=== PATIENT | female | born 2000 | race Caucasian/White ===

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

== ENCOUNTER 2018-11-14 22:59 | Inpatient (IN) | payer OTHER ==
[2018-11-14 23:56] LABS: ABSOLUTE BASOPHILS # (AUTO) 0.1 10^3/uL (0.0-0.2); ABSOLUTE EOSINOPHILS # (AUTO) 0.3 10^3/uL (0.0-0.6); ABSOLUTE LYMPHOCYTES (AUTO) 2.1 10^3/uL (0.5-4.7); ABSOLUTE MONOCYTES (AUTO) 0.4 10^3/uL (0.1-1.4); ABSOLUTE NEUT (AUTO) 4.1 10^3/uL (1.7-8.2); BASOPHILS % (AUTO) 0.9 % (0-2); EOSINOPHILS % (AUTO) 4.2 % (0-6); HEMATOCRIT 38.6 % (36.0-47.0); HEMOGLOBIN 13.3 g/dL (12.0-15.5); LYMPHOCYTES % (AUTO) 30.3 % (13-45); MEAN CORPUSCULAR HEMOGLOBIN 30.2 pg (27.0-33.4); MEAN CORPUSCULAR HGB CONC 34.3 g/dL (32.0-36.0); MEAN CORPUSCULAR VOLUME 88 fl (80-97); MONOCYTES % (AUTO) 5.9 % (3-13); PLATELET COUNT 247 10^3/uL (150-450); RED BLOOD COUNT 4.39 10^6/uL (3.72-5.28); RED CELL DISTRIBUTION WIDTH 12.5 % (11.5-14.0); SEGMENTED NEUTROPHILS % (AUTO) 58.7 % (42-78); TOTAL CELLS COUNTED % (AUTO) 100 %
[2018-11-15] MEDS ORDERED: ACTIVATED CHARCOAL 25 GM BOTTLE PO ONE ×2 (00:09→03:26)
[2018-11-15] MEDS ORDERED: NORMAL SALINE 1000 ML 1,000 ML IV ONE (00:10)
--- NOTE | 2018-11-15 00:13 | ER Document Report ---
ED General - General Chief Complaint: Overdose Stated Complaint: POSSIBLE OVERDOSE Time Seen by Provider: 11/14/18 23:42 Primary Care Provider: RAYSA NORTH MD [COMMUNITY BASED STAFF] - Follow up as needed Notes: Patient is a 18-year-old female without chronic medical problems who presents after an overdose on aspirin. Patient states that this was impulsive that she took anywhere between 30 to 40 325 mg tablets of adult aspirin approximately 1 hour prior to arrival. States she did this due to stress, frustration and after an argument with her mother. States that she has been very anxious and worked up for the past several months. Nothing seems to improve or worsen that symptom. Has not seen her primary doctor or mental health care regarding this issue. Patient reports that she almost immediately regretted her decision, tried to self-induced vomiting but could not vomit up any of the pills that she had ingested. Currently denies any symptoms. Denies suicidal ideation, states she feels very foolish or having them when she did tonight. No history of previous suicide attempts. States she is not even certain that she was suicidal when she took her medications. TRAVEL OUTSIDE OF THE [place] IN LAST 30 DAYS: No - Related Data Allergies/Adverse Reactions: No Known Allergies Allergy (Verified 11/14/18 23:10) Past Medical History - General Information source: Patient - Social History Smoking Status: Never Smoker Frequency of alcohol use: Occasional Drug Abuse: Marijuana Lives with: Alone Family History: Reviewed & Not Pertinent Renal/ Medical History: Reports: Hx Peritoneal Dialysis - Immunizations Immunizations up to date: Yes Hx Diphtheria, Pertussis, Tetanus Vaccination: Yes Review of Systems - Review of Systems Notes: Constitutional: Negative for fever. HENT: Negative for sore throat. Eyes: Negative for visual changes. Cardiovascular: Negative for chest pain. Respiratory: Negative for shortness of breath. Gastrointestinal: Negative for abdominal pain, vomiting or diarrhea. Genitourinary: Negative for dysuria. Musculoskeletal: Negative for back pain. Skin: Negative for rash. Neurological: Negative for headaches, weakness or numbness. 10 point ROS negative except as marked above and in HPI. Physical Exam - Vital signs Vitals: Resp 18 11/14/18 23:08 Interpretation: Normal Notes: PHYSICAL EXAMINATION: GENERAL: Well-appearing, well-nourished and in no acute distress. HEAD: Atraumatic, normocephalic. EYES: Pupils equal round and reactive to light, extraocular movements intact, sclera anicteric, conjunctiva are normal. ENT: nares patent, oropharynx clear without exudates. Moist mucous membranes. NECK: Normal range of motion, supple without lymphadenopathy LUNGS: Breath sounds clear to auscultation bilaterally and equal. No wheezes rales or rhonchi. HEART: Regular rate and rhythm without murmurs ABDOMEN: Soft, nontender, normoactive bowel sounds. No guarding, no rebound. No masses appreciated. EXTREMITIES: Normal range of motion, no pitting or edema. No cyanosis. NEUROLOGICAL: No focal neurological deficits. Moves all extremities spontaneously and on command. PSYCH: Normal mood, normal affect. SKIN: Warm, Dry, normal turgor, no rashes or lesions noted. Course - Re-evaluation Re-evalutation: 11/15/18 00:12 Patient presents alleging that she may have taken over 10,000 mg of aspirin approximately 1 hour prior to arrival. Currently normal mental status, vitals within normal limits, no identifiable symptoms as a result of this ingestion. Poison control has been contacted, we will administer activated charcoal 50 g per the recommendation. Labs are pending. Serial aspirin levels have been ordered. Patient will be started on normal saline infusion. She will be reassessed at regular intervals. Highly concerning presentation of patient did take as much as she states she did. 11/15/18 01:56 Patient is beginning to have tinnitus, mental status remains normal. Vitals remain within acceptable limits. Repeat aspirin level will be drawn at 0215. Will continue to reassess. 11/15/18 03:27 Patient's aspirin level has unfortunately climbed to 42. A bicarbonate infusion will be initiated at 250 cc/h per toxicology protocol. Patient will also be given a repeat dose of activated charcoal at 25 g. Patient continues to be below threshold for transfer to a facility with hemodialysis or nephrology consu ltation at this time. We likewise should have the services available in the morning. Will discuss with the hospitalist for admission. On repeat assessment the patient she remains with tinnitus but no other clinical symptoms. - Vital Signs Vital signs: Temp Pulse Resp BP Pulse Ox 98.2 F 16 121/71 100 11/15/18 02:23 11/15/18 02:16 11/15/18 02:16 06/17/19 02:16 - Laboratory Result Diagrams: 11/14/18 23:15 11/15/18 02:20 Laboratory results interpreted by me: 11/14/18 11/15/18 11/15/18 23:15 01:07 02:20 Chloride 108 H Urine Ketones Ur Leukocyte Esterase TRACE H Salicylates 21.1 H* 42.4 H* Acetaminophen < 10 L 11/15/18 11/15/18 02:20 02:20 Chloride 110 H Urine Ketones TRACE H Ur Leukocyte Esterase TRACE H Salicylates Acetaminophen - EKG Interpretation by Me Additional EKG results interpreted by me: 11/15/18 02:28 Sinus rhythm, rate 62, no ST elevations or depressions. QTC is 431 Critical Care Note - Critical Care Note Total time excluding time spent on procedures (mins): 37 Comments: Critical care time spent obtaining history from patient or surrogate, discussions with consultants, development of treatment plan with patient or surrogate, evaluation of patient's response to treatment, examination of patient, ordering and performing treatments and interventions, ordering and review of laboratory studies, re-evaluation of patient's condition Discharge - Discharge Clinical Impression: Suicide attempt Aspirin overdose Qualifiers: Encounter type: initial encounter Injury intent: intentional self-harm Qualified Code(s): T39.012A - Poisoning by aspirin, intentional self-harm, initial encounter Salicylate intoxication Qualifiers: Encounter type: initial encounter Injury intent: intentional self-harm Qualified Code(s): T39.092A - Poisoning by salicylates, intentional self-harm, initial encounter Condition: Fair Disposition: ADMITTED INPATIENT Admitting Provider: Olga Lidia (Hospitalist) Unit Admitted: ICU Referrals: RAYSA NORTH MD [COMMUNITY BASED STAFF] - Follow up as needed
[2018-11-15 00:15] LABS: ALANINE AMINOTRANSFERASE 18 U/L (9-52); ALBUMIN 4.3 g/dL (3.5-5.0); ALKALINE PHOSPHATASE 67 U/L (38-126); ANION GAP 8 (5-19); ASPARTATE AMINO TRANSFERASE 17 U/L (14-36); BILIRUBIN,DIRECT 0.1 mg/dL (0.0-0.4); BILIRUBIN,TOTAL 0.3 mg/dL (0.2-1.3); BLOOD UREA NITROGEN 12 mg/dL (7-20); CALCIUM 9.7 mg/dL (8.4-10.2); CARBON DIOXIDE 25 mmol/L (22-30); CHLORIDE 108 mmol/L (98-107); GLUCOSE 85 mg/dL (75-110); POTASSIUM 3.9 mmol/L (3.6-5.0); SODIUM 141.4 mmol/L (137-145); TOTAL PROTEIN 6.9 g/dL (6.3-8.2)
[2018-11-15 00:16] LABS: ACETAMINOPHEN < 10 ug/mL (10-30); ALCOHOL < 10 mg/dL (NONE DETECTED)
[2018-11-15] MEDS ORDERED: ONDANSETRON HCL INJ/PF 4 MG/2 ML SDV ONE (00:20)
[2018-11-15 00:25] LABS: SALICYLATE 21.1 mg/dL (2.0-20.0)
[2018-11-15 01:41] LABS: URINE AMPHETAMINES SCREEN NEGATIVE; URINE BARBITURATES SCREEN NEGATIVE; URINE BENZODIAZEPINES SCREEN NEGATIVE; URINE COCAINE SCREEN NEGATIVE; URINE MARIJUANA (THC) SCREEN UNCONFIRMED POSITIVE; URINE METHADONE SCREEN NEGATIVE; URINE PHENCYCLIDINE SCREEN NEGATIVE
[2018-11-15 01:47] LABS: APPEARANCE,URINE CLEAR; BILIRUBIN,URINE NEGATIVE (NEGATIVE); COLOR,URINE STRAW; GLUCOSE, URINE NEGATIVE (NEGATIVE); KETONES,URINE NEGATIVE (NEGATIVE); LEUKOCYTE ESTERASE,URINE TRACE (NEGATIVE); NITRITE,URINE NEGATIVE (NEGATIVE); PROTEIN,URINE NEGATIVE (NEGATIVE); URINE SPECIFIC GRAVITY 1.006; UROBILINOGEN,URINE NEGATIVE mg/dL (<2.0)
[2018-11-15 02:50] LABS: VENOUS BLOOD BASE EXCESS -1.7 mmol/L; VENOUS BLOOD HCO3 23.2 mmol/L (20-32); VENOUS BLOOD PH 7.38 (7.30-7.42)
[2018-11-15 03:11] LABS: ANION GAP 9 (5-19); BLOOD UREA NITROGEN 11 mg/dL (7-20); CALCIUM 9.6 mg/dL (8.4-10.2); CARBON DIOXIDE 24 mmol/L (22-30); CHLORIDE 110 mmol/L (98-107); GLUCOSE 84 mg/dL (75-110)
[2018-11-15 03:25] LABS: APPEARANCE,URINE CLEAR; BILIRUBIN,URINE NEGATIVE (NEGATIVE); COLOR,URINE COLORLESS; GLUCOSE, URINE NEGATIVE (NEGATIVE); KETONES,URINE TRACE mg/dL (NEGATIVE); LEUKOCYTE ESTERASE,URINE TRACE (NEGATIVE); NITRITE,URINE NEGATIVE (NEGATIVE); PROTEIN,URINE NEGATIVE (NEGATIVE); URINE SPECIFIC GRAVITY 1.004; UROBILINOGEN,URINE NEGATIVE mg/dL (<2.0)
[2018-11-15] MEDS ORDERED: DEXTROSE 5%-WATER 1000 ML 1,000 ML with SODIUM BICARBONATE 150 MEQ IV PRN ×6 (03:25→04:34)
[2018-11-15] MEDS ORDERED: SODIUM BICARBONATE 8.4% INJ 50 MEQ/50 ML DISP.SYRIN ONE (03:33)
[2018-11-15] MEDS ORDERED: RINGERS SOLUTION,LACTATED 1,000 ML IV PRN (04:35)
[2018-11-15] MEDS ORDERED: MAGNESIUM HYDROXIDE SUSP 30 ML UDCUP PO PRN (04:36)
[2018-11-15] MEDS ORDERED: ONDANSETRON HCL INJ/PF 4 MG/2 ML SDV IV PRN ×2 (04:36→14:30)
[2018-11-15] MEDS ORDERED: ACTIVATED CHARCOAL 25 GM BOTTLE PO SCH ×2 (05:00→06:30)
[2018-11-15 05:32] LABS: HEMATOCRIT 41.6 % (36.0-47.0); HEMOGLOBIN 14.1 g/dL (12.0-15.5); MEAN CORPUSCULAR HGB CONC 33.9 g/dL (32.0-36.0); MEAN CORPUSCULAR VOLUME 88 fl (80-97); PLATELET COUNT 251 10^3/uL (150-450); RED CELL DISTRIBUTION WIDTH 12.4 % (11.5-14.0); WHITE BLOOD COUNT 8.6 10^3/uL (4.0-10.5)
[2018-11-15 05:51] LABS: ANION GAP 10 (5-19); BLOOD UREA NITROGEN 11 mg/dL (7-20); CALCIUM 9.4 mg/dL (8.4-10.2); CARBON DIOXIDE 26 mmol/L (22-30); CHLORIDE 107 mmol/L (98-107); GLUCOSE 79 mg/dL (75-110); POTASSIUM 3.6 mmol/L (3.6-5.0); SODIUM 143.2 mmol/L (137-145)
[2018-11-15] MEDS ORDERED: PANTOPRAZOLE SODIUM 40 MG VIAL IV SCH (06:00)
--- NOTE | 2018-11-15 06:11 | PDOC H&P ---
History of Present Illness Admission Date/PCP: 11/15/2018 04:08 No local PCP Patient complains of: Aspirin overdose History of Present Illness: GODFREY POSEY is a 18 year old female who presented to the emergency room with an acute aspirin overdose. She admits that approximately 1 hour prior to her arrival at the emergency room after having a fight with her mother she took between thirty and forty 325 mg aspirin tablets in an active frustration and defiance rather than in an attempt at ending her life. She immediately regretted her decision and she tried to induce vomiting but was unsuccessful. She continues to be remorseful over her decision but has no suicidal ideation or intent. She further admits that she has been very anxious and stressed over the last several months due to a variety of life stresses. She has no prior overdoses or suicide attempts. The only symptom she has experienced since the ingestion is mild tinnitus. In the emergency room she was treated with oral activated charcoal and an intravenous bicarbonate infusion. Serial acetylsalicylic acid levels were obtained and are being followed every 3 hours. Patient will be admitted to the ICU for further evaluation and treatment. Past Medical History Cardiac Medical History: Denies: Coronary Artery Disease, Hypertension Pulmonary Medical History: Denies: Asthma, Respiratory Failure EENT Medical History: Denies: Cataracts, Ears - Hearing aids Neurological Medical History: Denies: Multiple Sclerosis, Seizures Endocrine Medical History: Denies: Diabetes Mellitus Type 1, Hyperthyroidism, Hypothyroidism, Obesity Renal/ Medical History: Denies: Chronic Kidney Disease, Nephrolithiasis Malignancy Medical History: Reports: None GI Medical History: Denies: Crohn's Disease, Peptic Ulcer Disease, Ulcerative Colitis Musculoskeltal Medical History: Denies: Arthritis, Fibromyalgia Skin Medical History: Denies: Eczema, Psoriasis Psychiatric Medical History: Denies: Alcohol Dependency, Bipolar Disorder, Depression, Substance Abuse, Tobacco Dependency Social History Information Source: Patient Lives with: Alone Smoking Status: Never Smoker Frequency of Alcohol Use: None Hx Recreational Drug Use: No Drugs: None Hx Prescription Drug Abuse: No - Advance Directive Resuscitation Status: Full Code Surrogate healthcare decision maker:: Bony Posey Family History Family History: CAD, Hypertension. denies: DM, Malignancy Parental Family History Reviewed: Yes Children Family History Reviewed: No Sibling(s) Family History Reviewed.: Yes Medication/Allergy Home Medications: Nitrofurantoin Macrocrystal [Macrodantin] 100 mg PO QID 7 Days #28 capsule 05/20/17 Allergies/Adverse Reactions: No Known Allergies Allergy (Verified 11/14/18 23:10) Review of Systems Constitutional: ABSENT: chills, fever(s) Eyes: ABSENT: visual disturbances, other - Ocular pain Ears: PRESENT: hearing changes - Tinnitus. ABSENT: other - Ear pain Nose, Mouth, and Throat: ABSENT: mouth pain, sore throat Cardiovascular: ABSENT: chest pain, palpitations Respiratory: ABSENT: cough, dyspnea Gastrointestinal: ABSENT: abdominal pain, constipation, diarrhea, nausea, vomiting Genitourinary: ABSENT: dysuria, hematuria Musculoskeletal: ABSENT: back pain, joint swelling, muscle weakness Integumentary: ABSENT: pruritus, rash Neurological: ABSENT: confusion, convulsions, focal weakness, numbness, syncope Psychiatric: PRESENT: as per HPI, anxiety. ABSENT: depression, suicidal ideation Endocrine: ABSENT: cold intolerance, heat intolerance Hematologic/Lymphatic: ABSENT: easy bleeding, easy bruising Physical Exam Vital Signs: Temp Pulse Resp BP Pulse Ox 98.2 F 16 121/71 100 11/15/18 02:23 11/15/18 02:16 11/15/18 02:16 11/15/18 02:16 Intake & Output 11/13/18 11/14/18 11/15/18 23:59 23:59 23:59 Weight 57 kg General appearance: PRESENT: no acute distress, cooperative Head exam: PRESENT: atraumatic, normocephalic Eye exam: ABSENT: conjunctival injection, scleral icterus Ear exam: PRESENT: normal external ear exam. ABSENT: bleeding, drainage Mouth exam: PRESENT: dry mucosa, neck supple Neck exam: ABSENT: thyromegaly, tracheal deviation Respiratory exam: PRESENT: clear to auscultation pradeep, symmetrical, unlabored Cardiovascular exam: PRESENT: RRR. ABSENT: clicks, gallop, rubs Pulses: PRESENT: normal radial pulses, normal dorsalis pedis pul Vascular exam: PRESENT: normal capillary refill. ABSENT: pallor GI/Abdominal exam: PRESENT: normal bowel sounds, soft Rectal exam: PRESENT: deferred Extremities exam: ABSENT: joint swelling, pedal edema Musculoskeletal exam: PRESENT: full ROM, normal inspection Neurological exam: PRESENT: alert, oriented to person, oriented to place, oriented to time, oriented to situation, CN II-XII grossly intact. ABSENT: motor sensory deficit Psychiatric exam: PRESENT: appropriate affect, normal mood Skin exam: PRESENT: dry, intact, warm. ABSENT: jaundice, rash, urticaria Results Laboratory Results: 11/14/18 23:15 11/15/18 02:20 11/14/18 11/14/18 11/14/18 23:15 23:15 23:15 WBC 7.0 RBC 4.39 Hgb 13.3 Hct 38.6 MCV 88 MCH 30.2 MCHC 34.3 RDW 12.5 Plt Count 247 Seg Neutrophils % 58.7 Lymphocytes % 30.3 Monocytes % 5.9 Eosinophils % 4.2 Basophils % 0.9 Absolute Neutrophils 4.1 Absolute Lymphocytes 2.1 Absolute Monocytes 0.4 Absolute Eosinophils 0.3 Absolute Basophils 0.1 VBG pH VBG pCO2 VBG HCO3 VBG Base Excess Sodium 141.4 Potassium 3.9 Chloride 108 H Carbon Dioxide 25 Anion Gap 8 BUN 12 Creatinine 0.74 Est GFR ( Amer) > 60 Est GFR (Non-Af Amer) > 60 Glucose 85 Calcium 9.7 Magnesium Total Bilirubin 0.3 AST 17 ALT 18 Alkaline Phosphatase 67 Total Protein 6.9 Albumin 4.3 Serum HCG, Qual NEGATIVE Urine Color Urine Appearance Urine pH Ur Specific [place] Urine Protein Urine Glucose (UA) Urine Ketones Urine Blood Urine Nitrite Ur Leukocyte Esterase Urine WBC (Auto) Urine RBC (Auto) 11/14/18 11/15/18 11/15/18 23:15 01:07 02:20 WBC RBC Hgb Hct MCV MCH MCHC RDW Plt Count Seg Neutrophils % Lymphocytes % Monocytes % Eosinophils % Basophils % Absolute Neutrophils Absolute Lymphocytes Absolute Monocytes Absolute Eosinophils Absolute Basophils VBG pH 7.38 VBG pCO2 40.0 VBG HCO3 23.2 VBG Base Excess -1.7 Sodium Potassium Chloride Carbon Dioxide Anion Gap BUN Creatinine Est GFR ( Amer) Est GFR (Non-Af Amer) Glucose Calcium Magnesium 2.1 Total Bilirubin AST ALT Alkaline Phosphatase Total Protein Albumin Serum HCG, Qual Urine Color STRAW Urine Appearance CLEAR Urine pH 7.0 Ur Specific [place] 1.006 Urine Protein NEGATIVE Urine Glucose (UA) NEGATIVE Urine Ketones NEGATIVE Urine Blood NEGATIVE Urine Nitrite NEGATIVE Ur Leukocyte Esterase TRACE H Urine WBC (Auto) 1 Urine RBC (Auto) 0 11/15/18 11/15/18 02:20 02:20 WBC RBC Hgb Hct MCV MCH MCHC RDW Plt Count Seg Neutrophils % Lymphocytes % Monocytes % Eosinophils % Basophils % Absolute Neutrophils Absolute Lymphocytes Absolute Monocytes Absolute Eosinophils Absolute Basophils VBG pH VBG pCO2 VBG HCO3 VBG Base Excess Sodium 143.0 Potassium 4.0 Chloride 110 H Carbon Dioxide 24 Anion Gap 9 BUN 11 Creatinine 0.73 Est GFR ( Amer) > 60 Est GFR (Non-Af Amer) > 60 Glucose 84 Calcium 9.6 Magnesium Total Bilirubin AST ALT Alkaline Phosphatase Total Protein Albumin Serum HCG, Qual Urine Color COLORLESS Urine Appearance CLEAR Urine pH 6.0 Ur Specific [place] 1.004 Urine Protein NEGATIVE Urine Glucose (UA) NEGATIVE Urine Ketones TRACE H Urine Blood NEGATIVE Urine Nitrite NEGATIVE Ur Leukocyte Esterase TRACE H Urine WBC (Auto) 0 Urine RBC (Auto) Assessment and Plan - Diagnosis (1) Aspirin poisoning of undetermined intent Qualifiers: Encounter type: initial encounter Qualified Code(s): T39.014A - Poisoning by aspirin, undetermined, initial encounter Is this a current diagnosis for this admission?: Yes Plan: Patient will be continued on the salicylate overdose protocol per poison control. She will receive oral activated charcoal and an intravenous bicarbo lacy infusion per protocol. She will be monitored in the ICU. (2) Anxiety Is this a current diagnosis for this admission?: Yes Plan: Psychiatry consultation will be obtained to assess patient and propose appropriate treatment. (3) Stress Is this a current diagnosis for this admission?: Yes Plan: Psychiatry consultation will be obtained to assess patient and propose appropriate treatment. 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 If her tinnitus is not resolved and ENT evaluation may be obtained. - Time Time Spent with patient: 25-34 minutes Medications reviewed and adjusted accordingly: No - No home medications - Inpatient Certification Based on my medical assessment, after consideration of the patient's comorbidities, presenting symptoms, or acuity I expect that the services needed warrant INPATIENT care.: Yes I certify that my determination is in accordance with my understanding of Medicare's requirements for reasonable and necessary INPATIENT services [42 CFR 412.3e].: Yes Medical Necessity: Need Close Monitoring Due to Risk of Patient Decompensation, Need For IV Fluids, Need For Continuous Telemetry Monitoring, Need for Neurological Checks, Risk of Complication if Not Cared For in Hospital, Risk of Diagnosis Which Will Require Inpatient Eval/Care/Monitoring
--- NOTE | 2018-11-15 06:15 | ADVANCED CARE ---
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 Resuscitation Status: Full Code Discussion: Patient wishes to be full CODE STATUS in the event of a cardiac or respiratory arrest while she is hospitalized. She further wishes her father Bony Posey to be her designated surrogate medical decision maker. Care Planning Goals: 1. The patient will be full CODE STATUS. 2. Bony Posey will be designated as her surrogate medical decision maker. Document(s) Completed: The following entries are made into the medical record and medical orders via EMR entry: 1. The patient will be full CODE STATUS. 2. Bony Posey will be designated as her surrogate medical decision maker. Time Spent: 10 minutes
--- NOTE | 2018-11-15 06:39 | EKG REPORT ---
SEVERITY:- NORMAL ECG - SINUS RHYTHM : Confirmed by: Niko Gautam MD 15-Nov-2018 06:38:52
[2018-11-15] MEDS ORDERED: ACTIVATED CHARCOAL 25 GM BOTTLE ONE (06:49)
[2018-11-15] MEDS: ACTIVATED CHARCOAL 25 GM BOTTLE PO SCH ×3 (06:55→12:36)
[2018-11-15 07:54] LABS: APPEARANCE,URINE CLEAR; BILIRUBIN,URINE NEGATIVE (NEGATIVE); COLOR,URINE COLORLESS; GLUCOSE, URINE NEGATIVE (NEGATIVE); KETONES,URINE NEGATIVE (NEGATIVE); LEUKOCYTE ESTERASE,URINE NEGATIVE (NEGATIVE); NITRITE,URINE NEGATIVE (NEGATIVE); PROTEIN,URINE NEGATIVE (NEGATIVE); URINE SPECIFIC GRAVITY 1.003; UROBILINOGEN,URINE NEGATIVE mg/dL (<2.0)
[2018-11-15] MEDS ORDERED: NORMAL SALINE 1000 ML 1,000 ML IV PRN (08:23)
--- NOTE | 2018-11-15 08:23 | Progress Note ---
Provider Note Provider Note: 11/58-old female admitted for aspirin overdose admission salicylate level is 21 latest one is 43.5. Poison control on board. Patient receiving sodium bicarb and Ringer lactate. I think patient came immediately after taking the aspirin and increasing salicylate levels most likely secondary to continued absorption of the aspirin into the bloodstream. Serum potassium is a 3.6 blood sugar is 79 serum sodium is 143 creatinine is 0.76. Blood pressure is 109/67 plan is to change IV fluids normal saline at 100 cc/h and continue sodium bicarb infusion continue activated charcoal.
[2018-11-15 10:31] LABS: APPEARANCE,URINE CLEAR; BILIRUBIN,URINE NEGATIVE (NEGATIVE); COLOR,URINE COLORLESS; GLUCOSE, URINE NEGATIVE (NEGATIVE); KETONES,URINE NEGATIVE (NEGATIVE); LEUKOCYTE ESTERASE,URINE NEGATIVE (NEGATIVE); NITRITE,URINE NEGATIVE (NEGATIVE); PROTEIN,URINE NEGATIVE (NEGATIVE); URINE SPECIFIC GRAVITY 1.002; UROBILINOGEN,URINE NEGATIVE mg/dL (<2.0)
[2018-11-15 11:18] LABS: ANION GAP 9 (5-19); BLOOD UREA NITROGEN 10 mg/dL (7-20); CALCIUM 9.1 mg/dL (8.4-10.2); CARBON DIOXIDE 25 mmol/L (22-30); CHLORIDE 107 mmol/L (98-107); GLUCOSE 80 mg/dL (75-110); POTASSIUM 3.4 mmol/L (3.6-5.0); SODIUM 141.1 mmol/L (137-145)
[2018-11-15 11:30] LABS: SALICYLATE 33.1 mg/dL (2.0-20.0)
[2018-11-15 12:05] LABS: ANION GAP 8 (5-19); BLOOD UREA NITROGEN 10 mg/dL (7-20); CALCIUM 8.9 mg/dL (8.4-10.2); CARBON DIOXIDE 28 mmol/L (22-30); CHLORIDE 106 mmol/L (98-107); GLUCOSE 87 mg/dL (75-110); POTASSIUM 3.4 mmol/L (3.6-5.0)
[2018-11-15 12:13] LABS: APPEARANCE,URINE CLEAR; BILIRUBIN,URINE NEGATIVE (NEGATIVE); COLOR,URINE STRAW; GLUCOSE, URINE 50 mg/dL (NEGATIVE); KETONES,URINE NEGATIVE (NEGATIVE); LEUKOCYTE ESTERASE,URINE NEGATIVE (NEGATIVE); NITRITE,URINE NEGATIVE (NEGATIVE); PROTEIN,URINE NEGATIVE (NEGATIVE); URINE SPECIFIC GRAVITY 1.009; UROBILINOGEN,URINE NEGATIVE mg/dL (<2.0)
[2018-11-15 12:14] LABS: SALICYLATE 23.6 mg/dL (2.0-20.0)
[2018-11-15] MEDS ORDERED: POTASSIUM CHLORIDE 10 MEQ CAPSULE.ER PO ONE (13:15)
--- NOTE | 2018-11-15 15:45 | PSYCHOLOGICAL NOTE ---
Psych Note - Psych Note Date seen by psych provider: 11/15/18 Psych Note: Presenting Problem: Aspirin OD, Salicylate level was 21.1, increased to 43.7 and is trending back down. She reported being overwhelmed by family issues (not having a good relationship with parents) and school (at [employer] now and transferring to [employer] in Fall). She identified she was upset yesterday with it being Father's day, called her boyfriend to hang out who said he was with family which is what she should be doing. She reached out to her older half sister about taking pills, sister called poison control and then told patient she needed to go to the hospital. Patient listened and reported she drove hersel f but felt embarrassed about what she had done and immediately regretted it. She denied previous SI attempts. She denied current SI. She admitted to feeling alone inside and isolated, without support from parents. She denied previous MH treatment (medication or inpatient hospitalization) with exception of anger management therapy when younger at [facility]. She stated 1.5 years ago she was supposed to go to [facility] for assessment but because of outstanding balance did not go. She admitted to anger most of her life, lashing out at people or self, feeling the need to punch or break something, it can be over the smallest thing and then keeps building. She stated it is over minor inconveniences or when things don;t go as expected. She described herself as angry and impulsive. Patient open to appointment for therapy and agreed to include older sister and/or boyfriend in a plan of care. Attending nurse noted poison control cleared patient, Salicylate levels are in the 20s and attending hospitalist expects medical cleareance tomorrow morning. Diagnosis: OD Relationship Distress with Parents Unspecified Depressive Disorder Impression/Plan: Patient is cleared from acute psychiatric services. She regretted the OD immediately, reached out to her sister, came to the ED as sister directed, has no Hx of SI attempts, agreed to be linked to therapy and to include sister and/or boyfriend in plan of care. Need to scheduled outpatient follow up and coordinate with sister or boyfriend prior to discharge. Consulted with Dr. Lewis regarding the management and care of patient.
[2018-11-15] MEDS: PANTOPRAZOLE SODIUM 40 MG TABLET.DR PO SCH (16:17)
[2018-11-16 05:21] LABS: ABSOLUTE EOSINOPHILS # (AUTO) 0.4 10^3/uL (0.0-0.6); ABSOLUTE LYMPHOCYTES (AUTO) 2.2 10^3/uL (0.5-4.7); ABSOLUTE MONOCYTES (AUTO) 0.4 10^3/uL (0.1-1.4); ABSOLUTE NEUT (AUTO) 2.6 10^3/uL (1.7-8.2); BASOPHILS % (AUTO) 0.8 % (0-2); EOSINOPHILS % (AUTO) 6.5 % (0-6); HEMATOCRIT 34.8 % (36.0-47.0); HEMOGLOBIN 12.1 g/dL (12.0-15.5); LYMPHOCYTES % (AUTO) 39.4 % (13-45); MEAN CORPUSCULAR HEMOGLOBIN 30.6 pg (27.0-33.4); MEAN CORPUSCULAR HGB CONC 34.7 g/dL (32.0-36.0); MEAN CORPUSCULAR VOLUME 88 fl (80-97); MONOCYTES % (AUTO) 7.9 % (3-13); PLATELET COUNT 205 10^3/uL (150-450); RED BLOOD COUNT 3.94 10^6/uL (3.72-5.28); RED CELL DISTRIBUTION WIDTH 12.5 % (11.5-14.0); SEGMENTED NEUTROPHILS % (AUTO) 45.4 % (42-78); TOTAL CELLS COUNTED % (AUTO) 100 %; WHITE BLOOD COUNT 5.6 10^3/uL (4.0-10.5)
[2018-11-16 05:46] LABS: ALANINE AMINOTRANSFERASE 24 U/L (9-52); ALBUMIN 3.4 g/dL (3.5-5.0); ALKALINE PHOSPHATASE 50 U/L (38-126); ANION GAP 5 (5-19); ASPARTATE AMINO TRANSFERASE 14 U/L (14-36); BILIRUBIN,DIRECT 0.2 mg/dL (0.0-0.4); BILIRUBIN,TOTAL 0.6 mg/dL (0.2-1.3); BLOOD UREA NITROGEN 10 mg/dL (7-20); CALCIUM 9.1 mg/dL (8.4-10.2); CARBON DIOXIDE 24 mmol/L (22-30); CHLORIDE 111 mmol/L (98-107); GLUCOSE 88 mg/dL (75-110); SALICYLATE 3.9 mg/dL (2.0-20.0); SODIUM 140.4 mmol/L (137-145); TOTAL PROTEIN 5.6 g/dL (6.3-8.2)
[2018-11-16] MEDS: PANTOPRAZOLE SODIUM 40 MG TABLET.DR PO SCH (06:27)
[2018-11-16 09:07] VITALS: BP 103/66
--- NOTE | 2018-11-16 18:06 | PDOC DISCHARGE SUMMARY ---
General - Admit/Disc Date/PCP Admission Date/Primary Care Provider: 11/15/18 04:28 Discharge Date: 11/16/18 - Additional Information Resuscitation Status: Full Code Home Medications: No Home Medications 11/15/18 History of Present Illness History of Present Illness: Admitting hospitalist's H&P: GODFREY RIVERA is a 18 year old female who presented to the emergency room with an acute aspirin overdose. She admits that approximately 1 hour prior to her arrival at the emergency room after having a fight with her mother she took between thirty and forty 325 mg aspirin tablets in an active frustration and defiance rather than in an attempt at ending her life. She immediately regretted her decision and she tried to induce vomiting but was unsuccessful. She continues to be remorseful over her decision but has no suicidal ideation or intent. She further admits that she has been very anxious and stressed over the last several months due to a variety of life stresses. She has no prior overdoses or suicide attempts. The only symptom she has experienced since the ingestion is mild tinnitus. Hospital Course Hospital Course: Patient was admitted for aspirin toxicity. Aspirin level did come back elev ated. In the emergency room she was treated with oral activated charcoal and an intravenous bicarbonate infusion. Serial acetylsalicylic acid levels were obtained and were followed every 3 hours. Poison control was also consulted. Psychiatry also evaluated the patient. Patient did return to her baseline. Her tinnitus completely resolved. She denied any acute complaints on day of discharge. She did reaffirm on day of discharge that she does not have any suicidal ideation and just did it out of frustration and does not have any intent to harm or kill herself. Patient was also evaluated by psych and she has a confirmed outpatient psych appointment. Physical Exam Vital Signs: Temp Pulse Resp BP Pulse Ox 98.5 F 49 L 17 103/66 98 11/16/18 11:02 11/16/18 11:02 11/16/18 11:02 11/16/18 11:02 11/16/18 11:02 Intake & Output 11/15/18 11/16/18 11/17/18 06:59 06:59 06:59 Intake Total 1363 2011 Output Total 500 2700 0 Balance 863 -689 0 Weight 128 lb 8.472 oz 128 lb 8.472 oz General appearance: PRESENT: no acute distress, well-developed, well-nourished Head exam: PRESENT: atraumatic, normocephalic Eye exam: PRESENT: conjunctiva pink, EOMI, PERRLA. ABSENT: scleral icterus Ear exam: PRESENT: normal external ear exam Mouth exam: PRESENT: moist, tongue midline Neck exam: ABSENT: carotid bruit, JVD, lymphadenopathy, thyromegaly Respiratory exam: PRESENT: clear to auscultation pradeep. ABSENT: rales, rhonchi, wheezes Cardiovascular exam: PRESENT: RRR. ABSENT: diastolic murmur, rubs, systolic murmur Pulses: PRESENT: normal dorsalis pedis pul GI/Abdominal exam: PRESENT: normal bowel sounds, soft. ABSENT: distended, guarding, mass, organolmegaly, rebound, tenderness Rectal exam: PRESENT: deferred Neurological exam: PRESENT: alert, awake, oriented to person, oriented to place, oriented to time, oriented to situation, CN II-XII grossly intact. ABSENT: motor sensory deficit Psychiatric exam: ABSENT: homicidal ideation, suicidal ideation Results Laboratory Results: 11/16/18 05:00 11/16/18 05:00 11/16/18 11/16/18 05:00 05:00 WBC 5.6 RBC 3.94 Hgb 12.1 Hct 34.8 L MCV 88 MCH 30.6 MCHC 34.7 RDW 12.5 Plt Count 205 Seg Neutrophils % 45.4 Lymphocytes % 39.4 Monocytes % 7.9 Eosinophils % 6.5 H Basophils % 0.8 Absolute Neutrophils 2.6 Absolute Lymphocytes 2.2 Absolute Monocytes 0.4 Absolute Eosinophils 0.4 Absolute Basophils 0.0 Sodium 140.4 Potassium 4.0 Chloride 111 H Carbon Dioxide 24 Anion Gap 5 BUN 10 Creatinine 0.86 Est GFR ( Amer) > 60 Est GFR (Non-Af Amer) > 60 Glucose 88 Calcium 9.1 Magnesium 1.9 Total Bilirubin 0.6 AST 14 ALT 24 Alkaline Phosphatase 50 Total Protein 5.6 L Albumin 3.4 L Qualifiers - * PATIENT BEING DISCHARGED WITH ANY OF THE FOLLOWING DIAGNOSIS: No Acute Heart Failure - Is this a Heart Failure Patient?: No LVEF < 40%?: No- if no continue to question #3 3. Anticoagulant therapy for permanect/persistent/paraoxysmal Afib or Aflutter: N/A
== END 2018-11-16 11:29 | disposition home or self-care (01) | DRG 918 ==
LOC: ER 22:59 → EH 11-15 04:28 → ICU 11-15 05:34
PROVIDERS: ADMIT Emergency Medicine; ATTEND Emergency Medicine
DX: T39.092A Poisoning by salicylates, intentional self-harm, initial encounter (principal); T39.012A Poisoning by aspirin, intentional self-harm, initial encounter; H93.13 Tinnitus, bilateral; F41.9 Anxiety disorder, unspecified; F43.9 Reaction to severe stress, unspecified; Y92.098 Other place in other non-institutional residence as the place of occurrence of the external cause
CPT/HCPCS: 36415; 80048; 80053; 80307; 81001; 82803; 83735; 84443; 84703; 85025; 85027; 93005; 93010; 99291; J2405; J3490; J7030; J7060; S0164